=== PATIENT | female | born 1955 | race Caucasian/White ===

== ENCOUNTER 2017-01-03 20:48 | Observation (INO) | payer OTHER ==
--- NOTE | 2017-01-03 21:02 | CPEKG ---
Heart Rate: 76 RR Interval: 789 P-R Interval: 168 QRSD Interval: 96 QT Interval: 380 QTC Interval: 428 P [place]: 64 QRS [place]: -73 T Wave [place]: 39 EKG Severity - ABNORMAL ECG - EKG Impression: SINUS RHYTHM EKG Impression: LEFT ANTERIOR FASCICULAR BLOCK Electronically Signed By: Julio Matson 03-Jan-2017 23:20:00
[2017-01-03] MEDS ORDERED: ASPIRIN 81 MG CHEWABLE TAB PO ONE (21:19)
--- NOTE | 2017-01-03 21:20 | EDPHY ---
H & P Smoking Status: Never smoked <DanoJulio - Last Filed: 01/03/17 23:58> <Zaid Torres Latrell - Last Filed: 01/04/17 01:57> Time Seen by Provider: 01/03/17 21:05 HPI/ROS: Chief complaint. Chest pain HPI. Patient is a 61-year-old female with chest pain for 2 weeks. Waxes and wanes. She describes it as central pressure radiating through to her back. She did on a long mountain hike 2 days ago and had shortness of breath that was unusual for her. Her symptoms seem to be worse when she comes home and less than when she is out of the house. She also has shortness of breath. No history of heart or lung problems. No fever cough. No unusual leg pain or swelling. ROS Constitutional. no fever/chills, no weakness Eyes. no problems with vision ENT. no sore throat, no nasal drainage Cardiovascular. Chest pain Respiratory. Shortness of breath Abdominal. no abdominal pain, no nausea/vomiting, no diarrhea . no problems urinating MS. no calf pain/swelling, no neck/back pain, no joint pain Skin. no rash Lymph. no swollen glands Neuro. no headache, no dizziness, no difficulty walking or with speech (Julio Matson) Past Medical/Surgical History: Father of an [place] at age 58 PTSD, schizoaffective disorder, diabetes (Julio Matson) Social History: Single, nonsmoker, no alcohol (Julio Matson) Physical Exam: General Appearance: Alert well-developed female mild distress vital signs are stable Eyes: Pupils equal and round no pallor or injection. ENT, Mouth: Mucous membranes are moist. Respiratory: There are no retractions, lungs are clear to auscultation. Cardiovascular: Regular rate and rhythm. Gastrointestinal: Abdomen is soft and nontender, no masses, bowel sounds normal. Neurological: Awake and alert, sensory and motor exams grossly normal. Skin: Warm and dry, no rashes. Musculoskeletal: Neck is supple nontender. Extremities symmetrical, full range of motion. Psychiatric: Patient is oriented X 3, there is no agitation. (Julio Matson) Constitutional: Initial Vital Signs Temperature (C) 36.9 C 01/03/17 20:52 Heart Rate 71 01/03/17 20:52 Respiratory Rate 20 01/03/17 20:52 Blood Pressure 228/116 H 01/03/17 20:52 O2 Sat (%) 94 01/03/17 20:52 O2 Delivery Mode Room Air Allergies/Adverse Reactions: codeine [Codeine] Allergy (Verified 01/03/17 20:51) diphenhydramine HCl [From Benadryl] Allergy (Verified 01/03/17 20:51) penicillin V potassium [From Pen-Vee K] Allergy (Verified 01/03/17 20:51) eccinacea Allergy (Unknown, Uncoded 01/03/17 20:51) Home Medications: Medication Instructions Recorded Metoprolol-Not Compliant 04/02/13 O2-Not Compliant 04/02/13 Medical Decision Making <Julio Matson - Last Filed: 01/03/17 23:58> - Diagnostics Imaging: Discussed imaging studies w/ call or contact centre coach Radiologist <Zaid Torres - Last Filed: 01/04/17 01:57> - Diagnostics EKG Interpretation: EKG interpreted by me shows normal sinus rhythm normal interval. There is left axis deviation and left anterior fascicular block. QRS is otherwise normal. There is T-wave inversion in lead V2. Otherwise no significant ST elevation or depression. No arrhythmia. The rate is 76 (Julio Matson) Imaging Results: Imaging Impressions Chest X-Ray 01/03/17 21:20 Impression: 1. Mild cardiomegaly. Chest/Thorax CTA 01/03/17 22:03 Impression: 1. No evidence of pulmonary embolus using CT protocol. 2. No significant abnormality seen within the chest. 3. Mild to moderate hiatal hernia. Findings discussed with Dr. Zaid Torres at 1:30 hour, 01/04/2017. Chest x-ray interpreted by me shows LVH. No pneumonia (Julio Matson) Procedures: IV normal saline monitor (Julio Matson) ED Course/Re-evaluation: Elevated D-dimer. CT angio was ordered. Re-evaluated at 10:00 p.m. when she and I discussed lab results and need for further imaging. Patient expresses understanding and agreement (Julio Matson) 0005 care assumed by me pending CT scan of the chest for PE. Patient presenting with intermittent chest pain. Has risk factors for coronary disease. Elevated D-dimer. 0140 CT scan of the chest is negative for PE. Lungs are clear. I have discussed with Dr. Jose Juan, hospitalist. Patient will be admitted for further cardiac rule out. (Zaid Torres) Differential Diagnosis: I considered acute coronary syndrome and pulmonary embolus as the patient has an elevated D-dimer. I have also considered pneumonia (Julio Matson) Care Turn Over: Dr. Torres at midnight (Julio Matson) - Data Points Laboratory Results: Laboratory Results 01/03/17 21:00 01/03/17 21:00 01/03/17 01/03/17 01/03/17 21:00 21:00 21:00 WBC 7.23 10^3/uL 10^3/uL (3.80-9.50) RBC 5.44 10^6/uL H 10^6/uL (4.18-5.33) Hgb 14.7 g/dL g/dL (12.6-16.3) Hct 44.8 % % (38.0-47.0) MCV 82.4 fL fL (81.5-99.8) MCH 27.0 pg L pg (27.9-34.1) MCHC 32.8 g/dL g/dL (32.4-36.7) RDW 14.1 % % (11.5-15.2) Plt Count 213 10^3/uL 10^3/uL (150-400) MPV 10.7 fL fL (8.7-11.7) Neut % (Auto) 42.5 % % (39.3-74.2) Lymph % (Auto) 49.8 % H % (15.0-45.0) [place] % (Auto) 4.3 % L % (4.5-13.0) Eos % (Auto) 2.4 % % (0.6-7.6) Baso % (Auto) 0.6 % % (0.3-1.7) Nucleat RBC Rel Count 0.0 % % (0.0-0.2) Absolute Neuts (auto) 3.08 10^3/uL 10^3/uL (1.70-6.50) Absolute Lymphs (auto) 3.60 10^3/uL H 10^3/uL (1.00-3.00) Absolute Monos (auto) 0.31 10^3/uL 10^3/uL (0.30-0.80) Absolute Eos (auto) 0.17 10^3/uL 10^3/uL (0.03-0.40) Absolute Basos (auto) 0.04 10^3/uL 10^3/uL (0.02-0.10) Absolute Nucleated RBC 0.00 10^3/uL 10^3/uL (0-0.01) Immature Gran % 0.4 % % (0.0-1.1) Immature Gran # 0.03 10^3/uL 10^3/uL (0.00-0.10) D-Dimer 2.03 ug/mLFEU H ug/mLFEU (0.00-0.50) Sodium 139 mEq/L mEq/L (134-144) Potassium 4.4 mEq/L mEq/L (3.5-5.2) Chloride 105 mEq/L mEq/L (97-110) Carbon Dioxide 24 mEq/l mEq/l (22-31) Anion Gap 10 mEq/L mEq/L (8-16) BUN 12 mg/dL mg/dL (7-23) Creatinine 0.6 mg/dL mg/dL (0.6-1.0) Estimated GFR > 60 Glucose 288 mg/dL H mg/dL (70-100) Calcium 10.8 mg/dL H mg/dL (8.5-10.4) Phosphorus 3.2 mg/dL mg/dL (2.5-4.5) Total Bilirubin 0.6 mg/dL mg/dL (0.1-1.4) Conjugated Bilirubin 0.5 mg/dL mg/dL (0.0-0.5) Unconjugated Bilirubin 0.1 mg/dL mg/dL (0.0-1.1) AST 112 IU/L H IU/L (14-46) ALT 134 IU/L H IU/L (9-52) Alkaline Phosphatase 146 IU/L H IU/L (38-126) Troponin I < 0.012 ng/mL ng/mL (0-0.034) Total Protein 7.1 g/dL g/dL (6.3-8.2) Albumin 4.0 g/dL g/dL (3.5-5.0) Lipase 182.0 IU/L IU/L (23-300) Medications Given: Discontinued Medications Aspirin (Aspirin) 324 mg PO EDNOW ONE Stop: 01/03/17 21:20 Last Admin: 01/03/17 21:34 Dose: 324 mg Methylprednisolone Sodium Succinate (Solu-Medrol) 125 mg IVP EDNOW ONE Stop: 01/03/17 22:19 Last Admin: 01/03/17 22:21 Dose: 125 mg Departure <Julio Matson - Last Filed: 01/03/17 23:58> <Zaid Torres - Last Filed: 01/04/17 01:57> - Departure Disposition: [facility] Inpatient Acute Clinical Impression: Chest pain Condition: Fair Referrals: FREIDA MARTÍNEZ [Other] - As per Instructions
[2017-01-03 21:24] LABS: % IMMATURE GRANULYOCYTES 0.4 % (0.0-1.1); ABSOLUTE IMMATURE GRANULOCYTES 0.03 10^3/uL (0.00-0.10); ADD DIFF? NO; ADD MORPH? NO; ADD SCAN? NO; ATYPICAL LYMPHOCYTE FLAG 10 (0-99); FRAGMENT RBC FLAG 0 (0-99); HEMATOCRIT 44.8 % (38.0-47.0); HEMOGLOBIN 14.7 g/dL (12.6-16.3); LEFT SHIFT FLG 0 (0-99); LIPEMIA HEMOLYSIS FLAG 80 (0-99); MEAN CELL HEMOGLOBIN CONCENTR. 32.8 g/dL (32.4-36.7); MEAN CELL VOLUME 82.4 fL (81.5-99.8); MEAN PLATELET VOLUME 10.7 fL (8.7-11.7); PLATELET CLUMPS FLAG 0 (0-99); PLATELET COUNT 213 10^3/uL (150-400); RED BLOOD CELL COUNT 5.44 10^6/uL (4.18-5.33); RED CELL DISTRIBUTION WIDTH 14.1 % (11.5-15.2)
[2017-01-03 21:32] LABS: ANION GAP 10 mEq/L (8-16); CALCIUM 10.8 mg/dL (8.5-10.4); CARBON DIOXIDE 24 mEq/l (22-31); CHLORIDE 105 mEq/L (97-110); CREATININE 0.6 mg/dL (0.6-1.0); GLOMERULAR FILTRATION RATE > 60; GLUCOSE 288 mg/dL (70-100); POTASSIUM 4.4 mEq/L (3.5-5.2); SODIUM 139 mEq/L (134-144)
[2017-01-03 21:44] LABS: TROPONIN I < 0.012 ng/mL (0-0.034)
[2017-01-03] MEDS ORDERED: IOPAMIDOL (ISOVUE 370) 100 ML BTL IV ONE (22:05)
[2017-01-03 22:10] LABS: ALANINE AMINOTRANSFERASE 134 IU/L (9-52); ALKALINE PHOSPHATASE 146 IU/L (38-126); ASPARTATE AMINOTRANSFERASE 112 IU/L (14-46); BILIRUBIN,TOTAL 0.6 mg/dL (0.1-1.4); BILIRUBIN-CONJUGATED 0.5 mg/dL (0.0-0.5); BILIRUBIN-UNCONJUGATED 0.1 mg/dL (0.0-1.1); TOTAL PROTEIN 7.1 g/dL (6.3-8.2)
[2017-01-03] MEDS ORDERED: methylPREDNISolone SOD SUCC 125 MG/2 ML VIAL IVP ONE (22:18)
[2017-01-03 22:27] VITALS: RESP 16
[2017-01-04] MEDS ORDERED: NITROGLYCERIN 0.4 MG BTL SL PRN (02:07)
[2017-01-04] MEDS ORDERED: MBX SOLN 30 ML BOTTLE PO PRN (02:09)
[2017-01-04] MEDS ORDERED: CALCIUM CARBONATE 500 MG CHEWABLE TAB PO PRN (02:09)
[2017-01-04] MEDS: PANTOPRAZOLE SODIUM 40 MG TAB PO SCH ×2 (03:16→13:17)
[2017-01-04] MEDS: ASPIRIN 325 MG TAB PO SCH ×2 (03:16→13:17)
--- NOTE | 2017-01-04 04:53 | PDGENHP ---
History and Physical - Chief Complaint acute chest pain - History of Present Illness PCP: [facility] HPI: 61-year-old female presenting with acute chest pain characterized as pressure located in her central chest radiating to her back, onset of symptoms approximately 2 weeks ago and duration has been intermittent thereafter. She reports has been associated with shortness of breath and exacerbated by exertion and activity. She also reports that it is worse at night when she is lying supine. That being said, it should be noted that the patient believes that she has had a psychic premonition of a man with glasses repeating her heart out of her chest and these psychic visions occur while she is both awake and asleep. She reports that these have become more vivid recently. She also endorses auditory hallucinations of which she has limited insight but describes as a Kicking sensation located in her right head with a "knock" noise. These auditory hallucinations do not contain actual voices or language. She also believes that she recently has been suffering from "whip-worm" which she believes has produced emulsification from her "back-end"and has been alleviated by papaya seeds. She denies taking any devt-iug-kcpaaxi or prescription medications. History Information - Allergies/Home Medication List Allergies/Adverse Reactions: codeine [Codeine] Allergy (Verified 01/03/17 20:51) diphenhydramine HCl [From Benadryl] Allergy (Verified 01/03/17 20:51) penicillin V potassium [From Pen-Vee K] Allergy (Verified 01/03/17 20:51) eccinacea Allergy (Unknown, Uncoded 01/03/17 20:51) Home Medications: Metoprolol-Not Compliant 04/02/13 [Last Taken Unknown] O2-Not Compliant 04/02/13 [Last Taken Unknown] I have personally reviewed and updated: family history, medical history, social history, surgical history - Past Medical History diabetes type 2 ( currently not on any medication) Additional medical history: Reportedly PTSD, schizoaffective disorder, untreated - Surgical History Reports: no pertinent surgical hx - Family History Additional family history: father with myocardial infarction at age 58 - Social History Smoking Status: Former smoker Alcohol Use: None Drug Use: None Additional social history: patient reports she is independent in her ADLs Review of Systems ROS: 10pt was reviewed & negative except for what was stated in HPI & below Cardiac: Reports: chest pain Respiratory: Reports: shortness of breath Physical Exam Temp Pulse Resp BP Pulse Ox 36.6 C 77 16 214/109 H 94 01/04/17 02:39 01/04/17 03:02 01/04/17 03:02 01/04/17 03:02 01/04/17 03:02 Constitutional: no apparent distress, not in pain, chronically ill appearing, obese, No uncomfortable Eyes: PERRL, anicteric sclera, EOMI Ears, Nose, Mouth, Throat: moist mucous membranes, hearing normal, ears appear normal, no oral mucosal ulcers Cardiovascular: regular rate and rhythym, no murmur, rub, or gallop, edema ( trace bilateral lower extremity) Respiratory: no respiratory distress, no rales or rhonchi, clear to auscultation Gastrointestinal: normoactive bowel sounds, soft, non-tender abdomen, no palpable masses, distension ( moderate) Musculoskeletal: other ( full range of motion left shoulder without any pain, no tenderness to palpation over the left pectoralis) Neurologic: AAOx3, No facial droop Psychiatric: not anxious, other ( reporting auditory hallucinations, flat affect , tangential and magical thinking but redirectable), No agitated Lab Data & Imaging Review 01/03/17 21:00 01/03/17 21:00 WBC 7.23 10^3/uL (3.80-9.50) 01/03/17 21:00 RBC 5.44 10^6/uL (4.18-5.33) H 01/03/17 21:00 Hgb 14.7 g/dL (12.6-16.3) 01/03/17 21:00 Hct 44.8 % (38.0-47.0) 01/03/17 21:00 MCV 82.4 fL (81.5-99.8) 01/03/17 21:00 MCH 27.0 pg (27.9-34.1) L 01/03/17 21:00 MCHC 32.8 g/dL (32.4-36.7) 01/03/17 21:00 RDW 14.1 % (11.5-15.2) 01/03/17 21:00 Plt Count 213 10^3/uL (150-400) 01/03/17 21:00 MPV 10.7 fL (8.7-11.7) 01/03/17 21:00 Neut % (Auto) 42.5 % (39.3-74.2) 01/03/17 21:00 Lymph % (Auto) 49.8 % (15.0-45.0) H 01/03/17 21:00 [place] % (Auto) 4.3 % (4.5-13.0) L 01/03/17 21:00 Eos % (Auto) 2.4 % (0.6-7.6) 01/03/17 21:00 Baso % (Auto) 0.6 % (0.3-1.7) 01/03/17 21:00 Nucleat RBC Rel Count 0.0 % (0.0-0.2) 01/03/17 21:00 Absolute Neuts (auto) 3.08 10^3/uL (1.70-6.50) 01/03/17 21:00 Absolute Lymphs (auto) 3.60 10^3/uL (1.00-3.00) H 01/03/17 21:00 Absolute Monos (auto) 0.31 10^3/uL (0.30-0.80) 01/03/17 21:00 Absolute Eos (auto) 0.17 10^3/uL (0.03-0.40) 01/03/17 21:00 Absolute Basos (auto) 0.04 10^3/uL (0.02-0.10) 01/03/17 21:00 Absolute Nucleated RBC 0.00 10^3/uL (0-0.01) 01/03/17 21:00 Immature Gran % 0.4 % (0.0-1.1) 01/03/17 21:00 Immature Gran # 0.03 10^3/uL (0.00-0.10) 01/03/17 21:00 D-Dimer 2.03 ug/mLFEU (0.00-0.50) H 01/03/17 21:00 Sodium 139 mEq/L (134-144) 01/03/17 21:00 Potassium 4.4 mEq/L (3.5-5.2) 01/03/17 21:00 Chloride 105 mEq/L (97-110) 01/03/17 21:00 Carbon Dioxide 24 mEq/l (22-31) 01/03/17 21:00 Anion Gap 10 mEq/L (8-16) 01/03/17 21:00 BUN 12 mg/dL (7-23) 01/03/17 21:00 Creatinine 0.6 mg/dL (0.6-1.0) 01/03/17 21:00 Estimated GFR > 60 01/03/17 21:00 Glucose 288 mg/dL (70-100) H 01/03/17 21:00 Calcium 10.8 mg/dL (8.5-10.4) H 01/03/17 21:00 Phosphorus 3.2 mg/dL (2.5-4.5) 01/03/17 21:00 Total Bilirubin 0.6 mg/dL (0.1-1.4) 01/03/17 21:00 Conjugated Bilirubin 0.5 mg/dL (0.0-0.5) 01/03/17 21:00 Unconjugated Bilirubin 0.1 mg/dL (0.0-1.1) 01/03/17 21:00 AST 112 IU/L (14-46) H 01/03/17 21:00 ALT 134 IU/L (9-52) H 01/03/17 21:00 Alkaline Phosphatase 146 IU/L (38-126) H 01/03/17 21:00 Troponin I < 0.012 ng/mL (0-0.034) 01/03/17 21:00 Total Protein 7.1 g/dL (6.3-8.2) 01/03/17 21:00 Albumin 4.0 g/dL (3.5-5.0) 01/03/17 21:00 Lipase 182.0 IU/L (23-300) 01/03/17 21:00 Visualized and Interpreted EKG results: Yes EKG Interpretation: Positive for: other ( left anterior fascicular block) Assessment & Plan Assessment: 61-year-old female presenting with acute chest pain in the setting of diabetes Plan: 1. Chest pain. Acute, new problem this provider, further workup indicated. Potential etiologies include stable angina versus gastroesophageal reflux disease versus anxiety and mood related symptoms in the setting of schizoaffective disorder and possible PTSD. - placed on tele, cycle troponins - get treadmill new in a.m. - empirically give PPI - CT angiogram ruled out pulmonary embolism, has moderate hiatal hernia - empirically treat with aspirin until information obtained as above - if chest discomfort recurs, attempt treatment with sublingual nitroglycerin 2. Schizoaffective disorder. Reviewed outside records including emergency department report from 04/03/[address] Lockhart, at that time the patient reports that she has a schizoaffective disorder - this appears that any underlying disorders currently on treated - she does endorse auditory hallucinations but they do not appear to be pervasive at this time - would recommend attempts to establish follow-up at either [facility] or [facility] prior to discharge - she does not currently appear to be a danger to herself or others 3. Transaminitis. Most likely secondary to fatty liver disease in the setting of morbid obesity - would recommend metformin 500 mg twice daily which also concomitantly treat her diabetes mellitus type 2 which appears to currently be under treated - get lipid panel and hemoglobin A1c Diet. NPO while awaiting stress test Prophylaxis. Low risk patient, SCDs Code. Full Disposition. Anticipated discharge is 01/04/2017, pending further workup as outlined above I have discussed this patient with Dr. Zaid Torres from the emergency department, he has reported to me that the patient was signed out to him by Dr. Mtason and that it was recommended to him that the patient be observed overnight for cardiac risk stratification, and she is appropriate for the E[facility] at this time.
[2017-01-04 06:09] LABS: % IMMATURE GRANULYOCYTES 0.6 % (0.0-1.1); ABSOLUTE IMMATURE GRANULOCYTES 0.03 10^3/uL (0.00-0.10); ADD DIFF? NO; ADD MORPH? NO; ADD SCAN? NO; ATYPICAL LYMPHOCYTE FLAG 0 (0-99); FRAGMENT RBC FLAG 0 (0-99); HEMATOCRIT 42.5 % (38.0-47.0); HEMOGLOBIN 13.9 g/dL (12.6-16.3); LEFT SHIFT FLG 0 (0-99); LIPEMIA HEMOLYSIS FLAG 80 (0-99); MEAN CELL HEMOGLOBIN 27.4 pg (27.9-34.1); MEAN CELL HEMOGLOBIN CONCENTR. 32.7 g/dL (32.4-36.7); MEAN CELL VOLUME 83.7 fL (81.5-99.8); MEAN PLATELET VOLUME 11.3 fL (8.7-11.7); PLATELET CLUMPS FLAG 0 (0-99); PLATELET COUNT 166 10^3/uL (150-400); RED BLOOD CELL COUNT 5.08 10^6/uL (4.18-5.33); RED CELL DISTRIBUTION WIDTH 13.8 % (11.5-15.2)
[2017-01-04 06:21] LABS: ALANINE AMINOTRANSFERASE 120 IU/L (9-52); ALBUMIN 3.8 g/dL (3.5-5.0); ALKALINE PHOSPHATASE 132 IU/L (38-126); ANION GAP 10 mEq/L (8-16); ASPARTATE AMINOTRANSFERASE 94 IU/L (14-46); BILIRUBIN,TOTAL 0.9 mg/dL (0.1-1.4); CALCIUM 9.9 mg/dL (8.5-10.4); CARBON DIOXIDE 21 mEq/l (22-31); CHLORIDE 106 mEq/L (97-110); CHOLESTEROL 228 mg/dL (140-220); CHOLESTEROL/HDL RATIO 5.18 RATIO (1.00-4.44); CREATININE 0.5 mg/dL (0.6-1.0); GLOMERULAR FILTRATION RATE > 60; GLUCOSE 362 mg/dL (70-100); HIGH DENSITY LIPOPROTEIN 44 mg/dL (40-85); LDL/HDL RATIO 3.68 RATIO (1.00-3.22); LOW DENSITY LIPOPROTEIN 162 mg/dL (80-100); NON-HIGH DENSITY LIPOPROTEIN 184 mg/dL (90-129); POTASSIUM 4.8 mEq/L (3.5-5.2); SODIUM 137 mEq/L (134-144); SPECIMEN HEMOLYSIS 125; TOTAL PROTEIN 7.1 g/dL (6.3-8.2); TRIGLYCERIDE 114 mg/dL (35-135); VERY LOW DENSITY LIPOPROTEINS 22 mg/dL (8-25)
[2017-01-04 06:32] LABS: TROPONIN I < 0.012 ng/mL (0-0.034)
[2017-01-04 10:19] LABS: HEMOGLOBIN A1C 10.1 % (4.0-6.0)
[2017-01-04 12:37] VITALS: O2SAT 94
[2017-01-04 13:57] VITALS: BP 160/78; PULSE 70; TEMP 97.3
[2017-01-04] MEDS ORDERED: OMEGA-3 FATTY ACIDS 1,000 MG CAP PO SCH (21:00)
--- NOTE | 2017-01-04 21:04 | GDS ---
[f rep st] DISCHARGE SUMMARY ALL DIAGNOSES: 1. Chest pain. 2. Schizoaffective disorder. 3. Suspected fatty liver with transaminitis. 4. Hiatal hernia. HOSPITAL COURSE: A 61-year-old female, with untreated schizoaffective disorder, presents with chest pain. She believes that it was negative energy that had been directed against her heart. I had a lo ng discussion with her on the day of discharge regarding options. Notably, she had a negative EKG an d 2 negative troponins. I recommended that she undergo some sort of noninvasive ischemic eval; howev er, we are somewhat limited in what she will allow. She will not allow us to do a nuclear test. She did not want any nuclear/radioactive material injected into her. She would potentially be able to pe rform an exercise EKG, however, she has significant leg pain. She believes in a few days she will be able to perform this adequately. She has capacity to make decisions and understands the risks and b enefits. I talked about potential and heart attack if this were cardiac disease that went undi agnosed. She is not a danger to herself or others. She does have some hallucinations, though these s eem to be reasonably well controlled and understood, with decent insight. I discussed this with Zita Simpson. We will get her an outpatient stress treadmill EKG and provide her the date and time befo re discharge. I have also discharged her with aspirin, as well as carvedilol, for cardiac protection in the meantime. FOLLOWUP: Outpatient treadmill EKG on January 07 at 11:30. /[id number]/[id number]
[2017-01-05] MEDS ORDERED: LISINOPRIL 10 MG TAB PO SCH (09:00)
== END 2017-01-04 14:00 | disposition home or self-care (01) ==
LOC: F1N 01-04 02:47
PROVIDERS: ADMIT Internal Medicine; ATTEND Student in an Organized Health Care Education/Training Program
DX: R07.9 Chest pain, unspecified (principal); I51.7 Cardiomegaly; K44.9 Diaphragmatic hernia without obstruction or gangrene; E11.9 Type 2 diabetes mellitus without complications; F43.10 Post-traumatic stress disorder, unspecified; F25.9 Schizoaffective disorder, unspecified
CPT/HCPCS: 71275; 93005; G0378; Q9967; 96374

== ENCOUNTER → 2017-01-07 | Outpatient (CLI) | payer OTHER | LOC: BHFA 11:30 | PROVIDERS: ATTEND Internal Medicine Interventional Cardiology | DX: R07.9 Chest pain, unspecified (principal) ==